=== PATIENT | female | born 1980 | race African-American/Black ===

== ENCOUNTER 2016-07-15 19:37 | Emergency (ER) | payer OTHER ==
[~2016-07-15] VITALS: Ht 167.6 cm; Wt 72.6 kg
--- NOTE | 2016-07-15 21:10 | PHYS DOC ---
Past Medical History Past Medical History: Glaucoma, HIV, Other Additional Past Medical Histor: graves disease Past Surgical History: Other Additional Past Surgical Histo: thyroid removal Alcohol Use: None Drug Use: None Adult General Chief Complaint Chief Complaint: LOWER EXTREMITY SWELLING HPI HPI Patient is a 36 year old female who complains of bilateral lower extremity swelling, left started more than 3 weeks ago, right foot began to swell more recently. She is HIV positive and takes medication for that daily. She recently moved here from [place] and has no primary care doctor and has no medical follow-up in place. She also gives a history of Graves' disease, had a thyroidectomy in the past and had some IV treatments for Graves' disease in her eyes. Patient has no history of a blood clot. She has not injured her leg. She denies fever. No history of leg swelling in the past. PCP none Review of Systems Review of Systems Constitutional: Denies fever or chills [] Eyes: Denies change in visual acuity, redness, or eye pain [] HENT: Denies nasal congestion or sore throat [] Respiratory: Denies cough or shortness of breath [] Cardiovascular: Denies chest pain GI: Denies abdominal pain, nausea, vomiting, bloody stools or diarrhea [] : Denies dysuria or hematuria [] Musculoskeletal: Denies back pain or joint pain [] Integument: Denies rash or skin lesions [] Neurologic: Denies headache, focal weakness or sensory changes [] Endocrine: As in history of present illness for history of Graves Current Medications Current Medications Current Medications Medications (Trade) Dose Ordered Sig/Moises Start Time Stop Time Status Last Admin Dose Admin Info (Do NOT chart on this entry -- for MONITORING) 1 each PRN DAILY PRN 07/15/16 22:00 07/15/16 23:00 DC Iohexol (Omnipaque 300 Mg/ml) 60 ml 1X ONCE 07/15/16 22:30 07/15/16 22:31 DC Allergies Allergies Allergies Coded Allergies Type Severity Reaction Last Updated Verified sulfamethoxazole Allergy Intermediate 07/15/16 Yes trimethoprim Allergy Intermediate 07/15/16 Yes Physical Exam Physical Exam Constitutional: Well developed, well nourished, no acute distress, non-toxic appearance. Alert, mentating normally. HENT: Normocephalic, atraumatic, bilateral external ears normal, nose normal. [ ] Eyes: Exophthalmos bilaterally consistent with known Graves' disease, conjunctiva normal, no discharge. [] Neck: Normal range of motion, no stridor. [] Cardiovascular:Heart rate regular rhythm, no murmur [] Lungs & Thorax: Bilateral breath sounds clear to auscultation [] Abdomen: Bowel sounds normal, soft, no tenderness, no masses, no pulsatile masses. [] Skin: Warm, dry, no erythema, no rash. [] Back: No tenderness, no CVA tenderness. [] Extremities: Right lower extremity has moderate swelling of the calf, ankle, and foot, less swelling of the toes. Skin is warm but equal and does not have excessive warmth, no redness, no tenderness. No evidence of cellulitis. The right foot has mild swelling just of the small toe and the lateral aspect of the foot, no swelling of the ankle or calf. Neurologic: Alert and oriented X 3, normal motor function, normal sensory function, no focal deficits noted. [] Current Patient Data Vital Signs Vital Signs Date Time Temp Pulse Resp B/P Pulse Ox O2 Delivery O2 Flow Rate FiO2 07/15/16 22:53 82 15 164/104 99 Room Air 07/15/16 20:28 98.3 98.3 Lab Values Laboratory Tests Test 07/15/16 19:46 07/15/16 20:30 07/15/16 20:35 POC Urine HCG, Qualitative Hcg negative (Negative) Urine Collection Type Unknown Urine Color Yellow Urine Clarity Clear Urine pH 6.0 Urine Specific [place] >=1.030 Urine Protein Negativemg/dL (NEG-TRACE) Urine Glucose (UA) Negativemg/dL (NEG) Urine Ketones (Stick) Negativemg/dL (NEG) Urine Blood Negative (NEG) Urine Nitrite Negative (NEG) Urine Bilirubin Negative (NEG) Urine Urobilinogen Dipstick 1.0mg/dL (0.2 mg/dL) Urine Leukocyte Esterase Negative (NEG) Urine RBC 0/HPF (0-2) Urine WBC Occ/HPF (0-4) Urine Squamous Epithelial Cells Few/LPF Urine Bacteria Few/HPF (0-FEW) Urine Mucus Mod/LPF White Blood Count 10.6x10^3/uL (4.0-11.0) Red Blood Count 4.26x10^6/uL (3.50-5.40) Hemoglobin 9.5g/dL (12.0-15.5) L Hematocrit 30.8% (36.0-47.0) L Mean Corpuscular Volume 72fL (79-100) L Mean Corpuscular Hemoglobin 22pg (25-35) L Mean Corpuscular Hemoglobin Concent 31g/dL (31-37) Red Cell Distribution Width 20.7% (11.5-14.5) H Platelet Count 267x10^3/uL (140-400) Neutrophils (%) (Auto) 63% (31-73) Lymphocytes (%) (Auto) 30% (24-48) Monocytes (%) (Auto) 5% (0-9) Eosinophils (%) (Auto) 2% (0-3) Basophils (%) (Auto) 1% (0-3) Neutrophils # (Auto) 6.7x10^3uL (1.8-7.7) Lymphocytes # (Auto) 3.1x10^3/uL (1.0-4.8) Monocytes # (Auto) 0.6x10^3/uL (0.0-1.1) Eosinophils # (Auto) 0.2x10^3/uL (0.0-0.7) Basophils # (Auto) 0.1x10^3/uL (0.0-0.2) Platelet Estimate Adequate (ADEQUATE) Polychromasia Slight Hypochromasia Mod Anisocytosis Slight Microcytosis Mod Sodium Level 144mmol/L (136-145) Potassium Level 3.9mmol/L (3.5-5.1) Chloride Level 108mmol/L (98-107) H Carbon Dioxide Level 26mmol/L (21-32) Anion Gap 10 (6-14) Blood Urea Nitrogen 17mg/dL (7-20) Creatinine 1.3mg/dL (0.6-1.0) H Estimated GFR (Cockcroft-Gault) 55.5 BUN/Creatinine Ratio 13 (6-20) Glucose Level 87mg/dL (70-99) Calcium Level 8.9mg/dL (8.5-10.1) Total Bilirubin 0.3mg/dL (0.2-1.0) Aspartate Amino Transferase (AST) 14U/L (15-37) L Alanine Aminotransferase (ALT) 17U/L (14-59) Alkaline Phosphatase 50U/L (46-116) Total Protein 7.9g/dL (6.4-8.2) Albumin 3.7g/dL (3.4-5.0) Albumin/Globulin Ratio 0.9 (1.0-1.7) L Laboratory Tests 07/15/16 20:35 Laboratory Tests 07/15/16 20:35 EKG EKG [] Radiology/Procedures Radiology/Procedures Vascular Doppler of the lower extremities read by the radiologist. No DVT. CT scan of the abdomen and pelvis read by the radiologist. No acute findings. [] Course & Med Decision Making Course & Med Decision Making Pertinent Labs and Imaging studies reviewed. (See chart for details) 36-year-old female who recently relocated to [place] and gives a history of being HIV positive with a history of anemia and Graves' disease presents to the ED with a more than 3 week history of swelling of the left leg, ankle and foot, and now beginning to have some swelling of the right foot. It sounds like she has not had this evaluated and shortly afterwards started ended up moving to [place]. There is no immediately evident cause for her symptoms. I discussed with the patient that we will check some labs, CT scan and venous studies and she is agreeable to that plan. CT scan did not reveal any pelvic masses or other reason for leg swelling, venous Doppler negative for DVT, labs remarkable for anemia which is likely chronic but nothing acute that would explain her symptoms. I did reassure the patient that we've ruled out a number of potential causes and I believe that she can safely follow up as an outpatient. She was given phone numbers for local clinics to contact for follow-up primary care. [] Dragon Disclaimer Dragon Disclaimer This electronic medical record was generated, in whole or in part, using a voice recognition dictation system. Departure Departure Impression: Primary Impression: Leg swelling Additional Impression: HIV positive Disposition: 01 HOME, SELF-CARE Condition: STABLE Referrals: NO PCP (PCP) Additional Instructions: Tests in the emergency department did not show as a cause of your leg swelling, but we did not find any serious cause. I recommend follow-up as an outpatient with the primary care doctor as soon as possible, you were given some options for doctors to work with people who don't have insurance. For now, elevate your feet and legs when possible which may help with the swelling. Drink plenty of fluids. Problem Qualifiers EVA FAN MD Jul 15, 2016 21:09
[2016-07-15 21:21] LABS: BILIRUBIN,URINE NEGATIVE (NEG); GLUCOSE,URINE NEGATIVE (NEG); NITRITE,URINE NEGATIVE (NEG); PROTEIN,URINE NEGATIVE (NEG-TRACE)
[2016-07-15 21:22] LABS: BASO # 0.1 x10^3/uL (0.0-0.2); BASO % 1 % (0-3); EOS % 2 % (0-3); HEMATOCRIT 30.8 % (36.0-47.0); HEMOGLOBIN 9.5 g/dL (12.0-15.5); LYMPH # 3.1 x10^3/uL (1.0-4.8); LYMPH % 30 % (24-48); MEAN CORPUSCULAR HEMOGLOBIN 22 pg (25-35); MEAN CORPUSCULAR HGB CONC 31 g/dL (31-37); MEAN CORPUSCULAR VOLUME 72 fL (79-100); MONO % 5 % (0-9); NEUT % 63 % (31-73); PLATELET COUNT 267 x10^3/uL (140-400); RED BLOOD COUNT 4.26 x10^6/uL (3.50-5.40); RED CELL DISTRIBUTION WIDTH 20.7 % (11.5-14.5); WHITE BLOOD COUNT 10.6 x10^3/uL (4.0-11.0)
[2016-07-15 21:28] LABS: BACTERIA,URINE FEW /HPF (0-FEW); RBC,URINE 0 /HPF (0-2); SQUAMOUS EPITHELIAL CELL,UR FEW /LPF; WBC,URINE OCC /HPF (0-4)
[2016-07-15 21:33] LABS: CALCIUM 8.9 mg/dL (8.5-10.1); CREATININE 1.3 mg/dL (0.6-1.0); GFR 55.5; POTASSIUM 3.9 mmol/L (3.5-5.1)
[2016-07-15 21:39] LABS: ALBUMIN 3.7 g/dL (3.4-5.0); ALBUMIN/GLOBULIN RATIO 0.9 (1.0-1.7); TOTAL BILIRUBIN 0.3 mg/dL (0.2-1.0); TOTAL PROTEIN 7.9 g/dL (6.4-8.2)
[2016-07-15 21:47] LABS: ANISOCYTOSIS SLIGHT; HYPOCHROMIA MOD; MICROCYTOSIS MOD; PLT ESTIMATE ADEQUATE (ADEQUATE); POLYCHROMASIA SLIGHT
[2016-07-15] MEDS ORDERED: CONTRAST GIVEN MC PRN (22:00)
--- NOTE | 2016-07-15 22:02 | RAD ---
INDICATION: Bilateral leg swelling, left greater than right. COMPARISON: None TECHNIQUE: Grayscale, color and spectral doppler ultrasound images are obtained through the bilateral leg deep venous systems. FINDINGS: Vascular flow is seen in the common femoral, superficial femoral, popliteal and visualized calf veins. Subcutaneous edema is seen in the region of the left ankle, without focal fluid collection present. IMPRESSION: No deep vein thrombosis identified of the bilateral leg. Electronically signed by: Mica Pittman (Jul 15, 2016 22:00:32)
--- NOTE | 2016-07-15 22:25 | RAD ---
INDICATION: Abdominal swelling, bilateral lower extremity swelling. COMPARISON: None TECHNIQUE: Axial CT images obtained through the abdomen and pelvis without the use of intravenous contrast. Coronal and sagittal reformats are provided. One or more of the following individualized dose reduction techniques were utilized for this examination: 1. Automated exposure control; 2. Adjustment of the mA and/or kV according to patient size; 3. Use of iterative reconstruction technique. FINDINGS: Visualized lung bases demonstrate no acute finding. Detailed evaluation of intra-abdominal and pelvic organs and vascular structures is limited secondary to lack of IV contrast. Within this limitation, the liver, spleen, gallbladder, pancreas, adrenal glands and bilateral kidneys demonstrate no focal abnormality. The GI tract demonstrates no dilated bowel loops to suggest obstruction. The appendix is normal in caliber and air-filled in the right lower quadrant. The urinary bladder demonstrates no focal abnormality. Uterus and bilateral adnexa demonstrate no focal abnormality. No intra-abdominal or pelvic free fluid, free air or significant lymphadenopathy is seen. The aorta is normal in caliber. Visualized osseous structures and overlying soft tissues demonstrate no acute or suspicious finding. IMPRESSION: No acute intra-abdominal or pelvic process on this noncontrast study. Electronically signed by: Mica Pittman (Jul 15, 2016 22:24:46)
[2016-07-15] MEDS ORDERED: IOHEXOL 300 MG/ML 75 ML VIAL IV ONE (22:30)
[2016-07-15 22:53] VITALS: BP 164/104
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
== END 2016-07-15 22:59 | disposition home or self-care (01) ==
LOC: ER 19:37
DX: M79.89 Other specified soft tissue disorders (principal); Z21 Asymptomatic human immunodeficiency virus [HIV] infection status; I10 Essential (primary) hypertension; E05.00 Thyrotoxicosis with diffuse goiter without thyrotoxic crisis or storm
CPT/HCPCS: 36415; 71010; 74176; 80053; 81001; 81025; 85007; 85027; 93970; 99285-25